=== PATIENT | female | born 1995 | race Two or more races ===

== ENCOUNTER 2018-03-25 17:09 | Emergency (ER) | payer OTHER ==
[~2018-03-25] VITALS: Ht 172.7 cm; Wt 68.0 kg
[2018-03-25 17:18] VITALS: BP 128/92
[2018-03-25] MEDS ORDERED: IPRATROPIUM BROM 0.5 MG/2.5ML INH SOL NEB ONE (18:45)
[2018-03-25] MEDS ORDERED: ALBUTEROL SULF 2.5 MG/0.5ML(0.5%) NEB SOLN NEB ONE (18:45)
[2018-03-25] MEDS ORDERED: methylPREDNISolone SOD SUCC 125 MG/2 ML VL IM ONE (19:15)
== END 2018-03-25 19:52 | disposition left against medical advice (07) ==
LOC: ER 17:19
DX: J40 Bronchitis, not specified as acute or chronic (principal)